=== PATIENT | female | born 1980 | race Asian ===

== ENCOUNTER 2021-03-22 00:14 | Emergency (ER) | payer OTHER ==
[~2021-03-22] VITALS: Ht 157.5 cm; Wt 55.3 kg
[2021-03-22] MEDS ORDERED: BENADRYL ITCH28.3 G1 (00:24)
[2021-03-22] MEDS ORDERED: BENADRYL25 MG (00:24)
[2021-03-22] MEDS ORDERED: MEDROLPACK PO (02:53)
[2021-03-22] MEDS ORDERED: BENADRYL ALLERG25 MG PO (02:53)
== END 2021-03-22 04:30 | disposition home or self-care (01) ==
LOC: ER 00:14
DX: L23.7 Allergic contact dermatitis due to plants, except food (principal)